=== PATIENT | female | born 1980 | race Caucasian/White ===

== ENCOUNTER 2017-11-22 11:31 | Day surgery (SDC) | payer BC, OTHER ==
[~2017-11-22] VITALS: Ht 167.6 cm; Wt 66.2 kg
[2017-11-22 11:36] VITALS: BP 102/71
[2017-11-22] MEDS ORDERED: OXYTOCIN 30U/ 0.9% NaCL 500ML 500 ML ONE (12:24)
[2017-11-22] MEDS ORDERED: SODIUM CHLORIDE 0.9% 1,000ML IVBOLUS ONE (12:30)
[2017-11-22] MEDS ORDERED: SODIUM CHLORIDE FLUSH 10ML SYR IVF ONE (12:30)
[2017-11-22] MEDS ORDERED: OXYTOCIN 10 UNITS/ML, 1ML IV ONE (12:30)
[2017-11-22 12:34] LABS: BASOPHILS # (AUTO) 0.01 x10^3/uL (0-0.1); BASOPHILS % (AUTO) 0 % (0-1); EOSINOPHILS # (AUTO) 0.22 x10^3/uL (0-0.4); EOSINOPHILS % (AUTO) 2 % (1-7); LYMPHOCYTES # (AUTO) 1.76 x10^3/uL (1-3.4); LYMPHOCYTES % (AUTO) 14 % (22-44); MD NO; MEAN CORPUSCULAR HGB CONC 34.8 g/dL (32.4-35.8); MEAN CORPUSCULAR VOLUME 89.1 fL (80-100); MEAN PLATELET VOLUME 6.9 fL (7.4-10.4); MONOCYTES # (AUTO) 0.45 x10^3/uL (0.2-0.8); MONOCYTES % (AUTO) 4 % (2-9); NEUTROPHILS # (AUTO) 9.83 x10^3/uL (1.8-6.8); NEUTROPHILS % (AUTO) 80 % (42-75); PLATELET COUNT 234 x10^3/uL (130-400); RED BLOOD COUNT 3.43 x10^6/uL (3.82-5.3); RED CELL DISTRIBUTION WIDTH 12.7 % (9.6-15.2)
[2017-11-22] MEDS ORDERED: METHYLERGONOVINE 0.2 MG/ML IM ONE (12:41)
[2017-11-22] MEDS ORDERED: OXYTOCIN 10 UNITS/ML, 1ML ONE ×2 (12:41→15:31)
[2017-11-22] MEDS ORDERED: MISOPROSTOL 200 MCG TABLET ONE (12:41)
[2017-11-22] MEDS ORDERED: PRENATAL VITAMIN ×2 (12:44→12:45)
[2017-11-22] MEDS ORDERED: FENTANYL PF 100 MCG/2ML ONE (12:54)
[2017-11-22] MEDS ORDERED: MIDAZOLAM 1 MG/ML, 2ML ONE (12:55)
[2017-11-22] MEDS ORDERED: MEPERIDINE/PF 25MG/0.5ML ONE (14:11)
[2017-11-22] MEDS ORDERED: PROMETHAZINE 25 MG/ML, 1ML IV PRN (14:30)
[2017-11-22] MEDS ORDERED: OXYcodone 5 MG/5 ML ORAL.SOL UDC PO PRN (14:30)
[2017-11-22] MEDS ORDERED: MEPERIDINE/PF 25MG/0.5ML IVPush PRN (14:30)
[2017-11-22] MEDS ORDERED: MIDAZOLAM 1 MG/ML, 2ML IV PRN (14:30)
[2017-11-22] MEDS ORDERED: ACETAMINOPHEN 325 MG TABLET PO PRN (14:30)
[2017-11-22] MEDS ORDERED: morphine SULFATE 10 MG/ML, 1ML IV PRN (14:30)
[2017-11-22] MEDS ORDERED: FENTANYL PF 100 MCG/2ML IV PRN (14:30)
[2017-11-22] MEDS ORDERED: ONDANSETRON 2MG/ML, 2ML IVPush PRN (14:30)
[2017-11-22] MEDS ORDERED: ONDANSETRON 2MG/ML, 2ML ONE (15:31)
[2017-11-22] MEDS ORDERED: PROPOFOL 10 MG/ML, 20ML ONE (15:31)
[2017-11-22] MEDS ORDERED: KETOROLAC 30 MG/1 ML ONE (15:31)
[2017-11-22] MEDS ORDERED: DEXAMETHASONE 4 MG/ML, 1ML ONE (15:31)
[2017-11-22] MEDS ORDERED: CEFAZOLIN 1,000 MG ONE (15:31)
== END 2017-11-22 16:00 | disposition home or self-care (01) ==
LOC: OR 12:31 → EDIP 12:32 → UNDOADMIN 12:32 → ED 12:32 → OR 12:56 → UNDODISIN 16:00 → ED 16:00
PROVIDERS: ATTEND Emergency Medicine
DX: O03.4 Incomplete spontaneous abortion without complication (principal); Z3A.11 11 weeks gestation of pregnancy
CPT/HCPCS: 36415; 59812; 85025; 86850; 86900; 88305; 96361; 96374; 96375; 99285; J0690; J1100; J1885; J2175; J2250; J2405; J2590; J2704; J3010; J7030; J2210